=== PATIENT | female | born 2000 | race African-American/Black ===

== ENCOUNTER → 2023-02-22 17:30 | Outpatient (BNVA) | payer BC, SELFPAY | PROVIDERS: Visit Provider Nurse Practitioner | DX: Z20.2 Contact with and (suspected) exposure to infections with a predominantly sexual mode of transmission (principal); N94.9 Unspecified condition associated with female genital organs and menstrual cycle | CPT/HCPCS: 86592; 87491; 87591; 87661 ==

== ENCOUNTER 2023-05-06 01:38 | Emergency (ER) | payer BC, OTHER, SELFPAY ==
[2023-05-06 01:42] VITALS: BP 179/114; PULSE 87; RESP 16; TEMP 36.9; O2SAT 98
[2023-05-06 04:07] LABS: Basophils # 0.1 10^3/uL (0.0-0.1); Basophils % 0.7 %; Eosinophils # 0.2 10^3/uL (0.0-0.8); Hematocrit 37.3 % (36-47); Lymphocytes # 3.1 10^3/uL (1.5-6.5); Lymphocytes % 31.2 %; Mean Corpuscular HGB Conc 34.3 g/dL (30-55); Mean Corpuscular Hemoglobin 28.5 pg (27-33); Mean Corpuscular Volume 83.1 fl (85-98); Mean Platelet Volume 9.3 fL (7.4-10.4); Monocytes # 0.8 10^3/uL (0.2-0.9); Monocytes % 8.4 %; Neutrophils % 57.3 %; Nucleated Red Blood Cells % 0 %; Platelet Count 371 10^3/cmm (157-399); Red Blood Count 4.49 10^6/uL (3.85-5.65); Red Cell Distribution Width 11.8 % (12.1-15.1); White Blood Count 9.94 10^3/uL (4.5-13.0)
[2023-05-06 04:31] LABS: Alanine Aminotransferase 28 U/L (0-33); Albumin Level 3.9 g/dL (3.5-5.2); Alkaline Phosphatase 77 U/L (35-105); Anion Gap 13.5 (5-19); Aspartate Amino Transferase 21 U/L (0-32); Blood Urea Nitrogen 12 mg/dL (6-20); Calcium 9.1 mg/dL (8.5-10.5); Carbon Dioxide 24 mmol/L (22-29); Chloride 104 mmol/L (98-107); Globulin 3.4 g/dL (1.3-4.6); Glomerular Filtration Rate 154.2 mL/min (90-130); Glucose 110 mg/dL (65-115); Lipase 30 U/L (13-60); Osmolality Calculated 286 mOsm/kg (285-295); Potassium 3.5 mmol/L (3.5-5.1); Sodium 138 mmol/L (136-145); Total Bilirubin 0.4 mg/dL (0.15-1.2); Total Protein 7.3 g/dL (6.6-8.7)
[2023-05-06 06:34] LABS: HCG Qualitative Urine. Negative (Negative)
[2023-05-06 06:49] LABS: Add Urine Microscopic? NO; Charge for UA Resulting for Rev
[2023-05-06 06:51] LABS: Bilirubin Urine Neg (Negative); Blood Urine Neg (Negative); Glucose Urine UA Norm (Normal); Ketones Urine Negative (Negative); Leukocyte Esterase Urine Negative (Negative); Nitrate Urine Negative (Negative); Protein Urine Neg (Negative); Urine Appearance Clear (CLEAR); Urine Color Yellow (Yellow); Urobilinogen Urine Norm (Negative); pH Urine 5 (5-7)
--- NOTE | 2023-05-06 07:22 | XRR_ITS ---
PROCEDURE INFORMATION: Exam: XR Lumbosacral Spine Exam date and time: 05/06/2023 7:47 AM Age: 22 years old Clinical indication: Low back pain TECHNIQUE: Imaging protocol: Radiologic exam of the lumbosacral spine. Views: 2 or 3 views. COMPARISON: No relevant prior studies available. FINDINGS: Bones/joints: There are 5 lumbar type vertebral bodies. There are no fractures or subluxations. The disc space heights are preserved. No pars defects are detected though these images do not rule out pars defects. The sacroiliac joints are unremarkable. Soft tissues: Unremarkable. XR/XR lumbar spine 2-3V* [id number] IMPRESSION: Unremarkable study
[2023-05-06] MEDS: ketorolac 30 mg/mL INJ IVP (07:36)
[2023-05-06] MEDS: cyclobenzaprine 10 mg Tablet PO (07:37)
--- NOTE | 2023-05-06 08:15 | W.ED.BACK ---
HPI - Back Pain/Injury General: Chief Complaint: Abdominal Pain Stated Complaint: right abd pain Time Seen by Provider: 05/06/23 06:15 History of Present Illness: 22-year-old female presents to the emergency department with complaints of pain to the left and right side of her back just below her rib cage. She denies known injury or trauma. She states this started approximately 1 week ago and is intermittent. She states when it does occur the pain is a sharp stabbing type pain that can go from the left side of her back to the right side of her back just underneath her rib cage. She states that when the sharp stabbing pain occurs it is a 8 out of 10. She states that it does feel like it goes through to the left and right sides/flank area when the sharp stabbing pain occurs. She states she had 2 episodes of nausea vomiting when his pain became so bad. She states she feels no nausea and does not feel like she needs to vomit at present. She states that she is unsure what makes this pain better or what makes his pain worse. She states she has not had any abdominal surgeries or back surgeries. She denies difficulty with urination. Associated symptoms: Reports nausea and vomiting Review of Systems General: Reports: 10 or more systems reviewed and unremarkable except in HPI and below GI: Reports: nausea and vomiting Musc: Reports: back pain and other (Bilateral flank pain) [facility] ED PFSH: Family History (Updated 08/30/22 @ 13:03 by Kya Odonnell) Grandfather Diabetes Hypertension Denies family history of Cervical cancer Ovarian cancer CAD (coronary artery disease) Chronic kidney disease (CKD) Breast cancer Uterine cancer Thyroid disease Stroke Female Reproductive History: Date of last menstrual period: 02/26/23 Physical Exam Narrative: EXAM NARRATIVE: Constitutional: the patient appears well nourished and of normal development. Vital signs as documented. No acute distress at present. Alert and oriented-to person, place, time and situation. Head, eyes, ears, nose, mouth, throat: Normocephalic, atraumatic. Pupils-equal, round, reactive to light. No scleral icterus. Normal-appearing external ears. Normal appearing nasal turbinates, no drainage. No obvious oral lesions, posterior oropharynx without erythema or exudates. Neck: Supple, trachea is midline, no lymphadenopathy, no jugular venous distension, thyromegaly, or carotid bruits. Carotid upstrokes are brisk bilaterally. Lungs: clear to auscultation to all lung arvizu. Symmetrical rise and fall of chest, no obvious signs of increased work of breathing at present. Cardiac: Regular rate and rhythm, positive S1, S2. No murmurs, rubs or gallops that I can appreciate Abdomen: Soft, non-tender to palpation, normal active bowel sounds to all quadrants. No palpable masses, no organomegaly and abdominal bruits. Extremities: 2+ pulses in the upper extremities that are equal bilaterally, 2+ pulses in the lower extremities that are equal bilaterally. Non-edematous. Moves all extremities well, sensation to all extremities are noted. Skin: Warm, dry, intact. Course Vital Signs: Vital signs: Vital Signs Temperature 98.4 F 05/06/23 01:42 Pulse Rate 87 05/06/23 01:42 Respiratory Rate 16 05/06/23 01:42 Blood Pressure 179/114 05/06/23 01:42 Pulse Oximetry 98 05/06/23 01:42 MDM - Back Pain/Injury Medical Decision Making Physical exam completed and documented I have reviewed her CBC and CMP as well as a lumbar x-ray and there does not appear to be any acute findings. Patient is moving without any difficulty she has no CVA tenderness. Her urinalysis was normal. I have provided her Toradol and muscle relaxer for pain relief and will discharge her with [facility] Medical Records I reviewed the patient's medical records. Labs I reviewed the patient's lab results. 05/06/23 03:55 05/06/23 03:55 Radiology Impressions Lumbar Spine X-Ray 05/06/23 07:22 IMPRESSION: Unremarkable study Laboratory Results WBC 9.94 10^3/uL (4.5-13.0) 05/06/23 03:55 RBC 4.49 10^6/uL (3.85-5.65) 05/06/23 03:55 Hgb 12.80 g/dL (12.4-14.8) 05/06/23 03:55 Hct 37.3 % (36-47) 05/06/23 03:55 MCV 83.1 fl (85-98) L 05/06/23 03:55 MCH 28.5 pg (27-33) 05/06/23 03:55 MCHC 34.3 g/dL (30-55) 05/06/23 03:55 RDW 11.8 % (12.1-15.1) L 05/06/23 03:55 Plt Count 371 10^3/cmm (157-399) 05/06/23 03:55 MPV 9.3 fL (7.4-10.4) 05/06/23 03:55 Neut % (Auto) 57.3 % 05/06/23 03:55 Lymph % (Auto) 31.2 % 05/06/23 03:55 Garvin % (Auto) 8.4 % 05/06/23 03:55 Eos % (Auto) 2.0 % 05/06/23 03:55 Baso % (Auto) 0.7 % 05/06/23 03:55 Neut # (Auto) 5.70 10^3/uL (1.8-8.0) 05/06/23 03:55 Lymph # (Auto) 3.1 10^3/uL (1.5-6.5) 05/06/23 03:55 Garvin # (Auto) 0.8 10^3/uL (0.2-0.9) 05/06/23 03:55 Eos # (Auto) 0.2 10^3/uL (0.0-0.8) 05/06/23 03:55 Baso # (Auto) 0.1 10^3/uL (0.0-0.1) 05/06/23 03:55 Nucleated RBC % (auto) 0 % 05/06/23 03:55 Nucleated RBCs # 0.0 /100WBC 05/06/23 03:55 Sodium 138 mmol/L (136-145) 05/06/23 03:55 Potassium 3.5 mmol/L (3.5-5.1) 05/06/23 03:55 Chloride 104 mmol/L (98-107) 05/06/23 03:55 Carbon Dioxide 24 mmol/L (22-29) 05/06/23 03:55 Anion Gap 13.5 (5-19) 05/06/23 03:55 BUN 12 mg/dL (6-20) 05/06/23 03:55 Creatinine 0.6 mg/dL (0.5-0.9) 05/06/23 03:55 GFR Calculation 154.2 mL/min (90-130) H 05/06/23 03:55 Glucose 110 mg/dL (65-115) 05/06/23 03:55 Calculated Osmolality 286 mOsm/kg (285-295) 05/06/23 03:55 Calcium 9.1 mg/dL (8.5-10.5) 05/06/23 03:55 Total Bilirubin 0.4 mg/dL (0.15-1.2) 05/06/23 03:55 AST 21 U/L (0-32) 05/06/23 03:55 ALT 28 U/L (0-33) 05/06/23 03:55 Alkaline Phosphatase 77 U/L (35-105) 05/06/23 03:55 Total Protein 7.3 g/dL (6.6-8.7) 05/06/23 03:55 Albumin 3.9 g/dL (3.5-5.2) 05/06/23 03:55 Globulin 3.4 g/dL (1.3-4.6) 05/06/23 03:55 Lipase 30 U/L (13-60) 05/06/23 03:55 HCG, Qual Negative (Negative) 05/06/23 06:25 Urine Color Yellow (Yellow) 05/06/23 06:25 Urine Appearance Clear (CLEAR) 05/06/23 06:25 Urine pH 5 (5-7) 05/06/23 06:25 Ur Specific [place] 1.020 (1.005-1.030) 05/06/23 06:25 Urine Protein Neg (Negative) 05/06/23 06:25 Urine Glucose (UA) Norm (Normal) 05/06/23 06:25 Urine Ketones Negative (Negative) 05/06/23 06:25 Urine Blood Neg (Negative) 05/06/23 06:25 Urine Nitrate Negative (Negative) 05/06/23 06:25 Urine Bilirubin Neg (Negative) 05/06/23 06:25 Urine Urobilinogen Norm mg/dL (Negative) 05/06/23 06:25 Ur Leukocyte Esterase Negative (Negative) 05/06/23 06:25 All radiology interpretation(s) finalized by discharge Discharge Plan Discharge Patient Disposition: Home Clinical Impression: Musculoskeletal strain Condition: Stable Prescriptions: New cyclobenzaprine 10 mg tablet 10 mg PO Q8H Qty: 14 0RF naproxen 500 mg tablet 500 mg PO Q12H PRN (Reason: pain) Qty: 20 0RF No Action metronidazole 500 mg tablet 500 mg PO BID 7 Days Qty: 14 0RF Discharge Orders: Discharge ED (Routine); Ordered 05/06/23 Ordered By: Phillip Simon Discharge Diet: Advance as tolerated Discharge Activity: Resume usual activity Patient Instructions: Opioid Safety, Pain Management Activity Restrictions/Additional Instructions: Activity Restrictions/Additional Instructions: Thank you for choosing [facility] for your healthcare needs today. Please realize that you were seen in the Emergency Department and that we are providing you with an emergency medical screening exam and this may not be a complete and all inclusive of all the testing and or medical work-up that you may need to determine your ailment or severity of your illness. It is very important that you follow-up as instructed with your Primary care provider or Specialist for additional evaluation and to discuss your medical treatment plan. You may return to the Emergency Department should you have concerns or if your condition changes or worsens in any way. Coding Level of Care Code ED [employer] Supervisor for Kellie Gilmore
== END 2023-05-06 08:28 | disposition home or self-care (01) ==
PROVIDERS: Emergency Medicine; Emergency Provider Internal Medicine
DX: S39.012A Strain of muscle, fascia and tendon of lower back, initial encounter (principal); X58.XXXA Exposure to other specified factors, initial encounter
CPT/HCPCS: 72100; 80053; 81003; 81025; 83690; 85025; 96374; 99284; J1885